=== PATIENT | female | born 1980 | race Two or more races ===

== ENCOUNTER 2025-07-03 11:45 | Inpatient (IN) | payer OTHER ==
[~2025-07-03] VITALS: Ht 152.4 cm; Wt 72.6 kg
[2025-07-03 14:40] VITALS: BP 130/80
[2025-07-09] MEDS ORDERED: POVIDONE-IODINE 118 ML BOTT TOP ONE (10:59)
[2025-07-09] MEDS ORDERED: CEFAZOLIN SODIUM 1,000 MG VIAL IV ONE (13:00)
[2025-07-09] MEDS ORDERED: ONDANSETRON HCL 2 MG/ML VIAL IV PRN (15:30)
[2025-07-09] MEDS ORDERED: RINGERS SOLUTION,LACTATED 1,000 ML IV SCH (15:30)
[2025-07-09] MEDS ORDERED: MORPHINE SULFATE 4 MG/ML CARTRIDGE IV SCH (17:00)
[2025-07-09] MEDS ORDERED: ENOXAPARIN SODIUM 40 MG/0.4 ML SYRINGE SUBCUTANEO SCH ×2 (17:00→21:00)
[2025-07-09] MEDS ORDERED: CEFOXITIN SODIUM 2,000 MG VIAL IV SCH (17:00)
[2025-07-09 17:35] VITALS: BP 130/80
[2025-07-09 23:40] LABS: BASO % 0.1 % (0.1-1.2); EOS # 0.01 (0.04-0.54); EOS % 0.1 % (0.7-7.0); LYMPH # 0.91 (1.18-3.74); LYMPH % 12.4 % (19.3-53.1); MEAN PLATELET VOLUME 9.90 fl (9.4-12.4); MONO # 0.43 (0.24-0.82); MONO % 5.8 % (4.7-12.5); NEUT # 5.96 (1.56-6.13); NEUT % 81.1 % (34.0-71.1); RED CELL DISTRIBUTION WIDTH 12.6 % (11.6-14.4)
[2025-07-10 01:22] VITALS: BP 108/76
[2025-07-10 04:11] VITALS: BP 110/75
[2025-07-10 06:46] LABS: BASO % 0.2 % (0.1-1.2); EOS # 0.02 (0.04-0.54); EOS % 0.2 % (0.7-7.0); LYMPH # 0.67 (1.18-3.74); LYMPH % 7.0 % (19.3-53.1); MEAN PLATELET VOLUME 10.30 fl (9.4-12.4); MONO # 0.50 (0.24-0.82); MONO % 5.2 % (4.7-12.5); NEUT # 8.35 (1.56-6.13); NEUT % 87.1 % (34.0-71.1); RED CELL DISTRIBUTION WIDTH 12.7 % (11.6-14.4)
[2025-07-10 08:00] VITALS: BP 101/66
[2025-07-10] MEDS ORDERED: ACETAMINOPHEN WITH CODEINE 1 UDTAB TABLET PO PRN (09:00)
[2025-07-10 11:19] LABS: URINE APPEARANCE Clear; URINE BILIRRUBIN Negative (NEGATIVE); URINE BLOOD Large; URINE COLOR Yellow; URINE GLUCOSE Negative (NEGATIVE); URINE LEUKOCYTE Trace; URINE NITRATE Negative; URINE PROTEIN Negative (NEGATIVE); URINE UROBILINOGEN 0.2 E.U./dl
[2025-07-10 11:20] LABS: URINE BACTERIA 28.7 uL (0.0-1933); URINE EPITHELIAL CELLS 11.3 uL (0.0-38.8); URINE RBC 140.6 uL (0.0-20.8); URINE WBC 80.5 uL (0.0-23.2)
[2025-07-10 11:21] LABS: URINE CAST 0.00 uL (0.0-1.40); URINE KETONE 80 (NEGATIVE)
[2025-07-10] MEDS ORDERED: COLACE100 MG PO (14:52)
[2025-07-10] MEDS ORDERED: DICLOFENAC POTA50 MG PO (14:54)
[2025-07-10] MEDS ORDERED: ACETAMINOPHEN-1 EAC2 PO (14:54)
[2025-07-10] MEDS ORDERED: MAXFE CAPLET1 EAC1 PO (14:57)
== END 2025-07-10 15:18 | disposition home or self-care (01) | DRG 743 ==
LOC: O/R 07-09 08:00 → OB/GYN 07-09 10:00
PROVIDERS: ADMIT Obstetrics & Gynecology; ATTEND Obstetrics & Gynecology
PROC: 0UT74ZZ Resection of Bilateral Fallopian Tubes, Percutaneous Endoscopic Approach (ICD-10-PCS; 2025-07-09)
PROC: 0USG4ZZ Reposition Vagina, Percutaneous Endoscopic Approach (ICD-10-PCS; 2025-07-09)
PROC: 0UT94ZZ Resection of Uterus, Percutaneous Endoscopic Approach (ICD-10-PCS; principal; 2025-07-09 10:00)
DX: D25.0 Submucous leiomyoma of uterus (principal); N92.0 Excessive and frequent menstruation with regular cycle